=== PATIENT | female | born 1990 | race Caucasian/White ===

== ENCOUNTER 2016-08-20 11:16 | Outpatient (CLI) | payer OTHER ==
[~2016-08-20] VITALS: Ht 165.1 cm; Wt 104.0 kg
[2016-08-20 11:51] VITALS: BP 126/79
[2016-08-20] MEDS ORDERED: PREN1TAB60 PO (12:06)
[2016-08-20 12:33] LABS: HEMOGLOBIN 10.9 g/dL (11.7-16.4)
[2016-08-20 12:44] LABS: ASPARTATE AMINO TRANSFERASE 9 U/L (15-37); BLOOD UREA NITROGEN 4 mg/dL (7-18)
[2016-08-20] MEDS ORDERED: NEWBORN KIT ONE (13:18)
[2016-08-20] MEDS ORDERED: OXYTOCIN 30U/ 0.9% NaCL 500ML 500 ML ONE (13:18)
== END 2016-08-20 14:05 | disposition home or self-care (01) ==
LOC: LDOP 11:16 → UNDOADMIN 13:26 → LDIP 13:26 → LDOP 14:05
PROVIDERS: ATTEND Student in an Organized Health Care Education/Training Program
DX: O26.893 Other specified pregnancy related conditions, third trimester (principal); R10.11 Right upper quadrant pain; O14.93 Unspecified pre-eclampsia, third trimester; Z3A.38 38 weeks gestation of pregnancy
CPT/HCPCS: 36415; 59025; 80053; 81050; 82570; 84156; 84550; 85025; 99201; G0463